=== PATIENT | female | born 1950 | race Caucasian/White ===

== ENCOUNTER → 2024-01-15 | Outpatient (CLI) | payer MEDICARE, OTHER, SELFPAY ==
--- NOTE | 2024-01-15 08:00 | XR_ITS ---
Examination: CT middle inner ear, without contrast. 2-D coronal reconstructions. 2-D sagittal reconstructions. 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 High-resolution 64 slice scanner utilized. 2-D coronal reconstructions 2-D sagittal reconstructions Low dose protocols were performed. One or more of the following dose reduction techniques were used; automated exposure control, adjustment of the mA and/or KV according to patient size, use of iterative reconstruction technique. Findings: Axial sections of the right demonstrate mildly reduced mastoid aeration. Mild fluid in the mastoid air cells Jugular fossa and carotid canal do not appear remarkable. No deformity of the ossicles. Porus acusticus internus does not exhibit erosion. Cochlear apparatus unremarkable. Semicircular canals normal. Right otitis externa, soft tissue density in the middle ear Coronal reconstructions demonstrate no erosion of the scutum. No soft tissue mass in the attic or Prussak's space is seen. Ossicular mass intact. Axial sections of the left demonstrate moderately reduced mastoid aeration. Mild fluid density in the mastoid air cells Jugular fossa and carotid canal do not appear remarkable. No deformity of the ossicles. Porus acusticus internus does not exhibit erosion. Cochlear apparatus unremarkable. Semicircular canals normal. Soft tissue density in the middle ear Otitis externa Coronal reconstructions demonstrate no erosion of the scutum. No soft tissue mass in the attic or Prussak's space is seen. Ossicular mass intact. Linear opacities at the semicircular canals bilaterally, coronal image 224 Mild mucosal thickening ethmoid air cells Prominent hypertrophy right middle right inferior nasal turbinate Mucosal thickening up to 5 mm in the inferior right maxillary antrum Impression: Fluid in both mastoid air cells Soft tissue density in the middle ears bilaterally Bilateral otitis externa Prominent hypertrophy right middle right inferior nasal turbinates
== END | disposition home or self-care (01) ==
PROVIDERS: Referring Provider Otolaryngology; Visit Provider Otolaryngology
DX: H60.93 Unspecified otitis externa, bilateral (principal); J34.3 Hypertrophy of nasal turbinates; H74.8X3 Other specified disorders of middle ear and mastoid, bilateral
CPT/HCPCS: 70480

== ENCOUNTER 2024-02-06 06:30 | Day surgery (SDC) | payer MEDICARE, OTHER, SELFPAY ==
[2024-02-04 13:50] LABS: Alanine Aminotransferase 61 U/L (10-49); Albumin, Serum 5.1 gm/dL (3.4-4.8); Albumin/Globulin Ratio 2.3 (1.2-2.2); Alkaline Phosphatase 216 U/L (46-116); Anion Gap 9 (7-16); Aspartate Amino Transferase 34 U/L (0-34); BUN/Creatinine Ratio 21 Ratio (12-20); Bilirubin,Total 0.5 mg/dL (0.3-1.2); Blood Urea Nitrogen 17 mg/dL (9-23); Calcium 10.2 mg/dL (8.3-10.6); Calcium (Corrected) 10.2 mg/dL (8.5-10.1); Carbon Dioxide 26.3 mMol/L (20.0-31.0); Chloride 106 mMol/L (98-107); Creatinine (Component) 0.8 mg/dL (0.6-1.3); Globulin 2.2 gm/dL (2.3-3.5); Glucose 115 mg/dL (74-106); Osmolality,Calculated 283 (275-295); Sodium 141 mMol/L (136-145); Total Protein 7.3 gm/dL (5.7-8.2); eGFR > 60 See Note
[2024-02-06] VITALS (13 sets, daily range): BP systolic 128–153; BP diastolic 73–84; PULSE 73–99; RESP 12–18; TEMP 36.2–36.4; O2SAT 94–98; BMI 30.9
[2024-02-06] MEDS: DEXAMETHASONE SOD PHOS INJ 10 MG/ML VIAL 8 MG IV (08:09)
--- NOTE | 2024-02-06 11:30 | SUR.PHASEI ---
pt received from OR in recovery bay 2. pt asleep but responds to voice, breathing unlabored on 6l oxymask. v/s stable. pt dressing to right ear cdi. report received from Dr. Lopez and Misbah LOJA.
--- NOTE | 2024-02-06 11:46 | SUR.PHASEI ---
Report from Edvin
--- NOTE | 2024-02-06 11:48 | ESOP_ITS ---
Date of Procedure 02/06/24 Pre Op Diagnosis Bilateral severe to profound mixed hearing loss Post Op Diagnosis Bilateral severe to profound mixed hearing loss Procedure Right tympanomastoidectomy with ossicular chain reconstruction using autologous cartilage graft. Facial nerve monitoring. And unsuccessful attempt at cochlear implant insertion Findings Patient had some sclerotic changes of the mastoid and mucosal thickening of the middle ear. A stainless steel stapes prosthesis was resting on the footplate held up by adhesions. The long process of the incus was eroded away. Facial nerve and chorda tympani nerve were in the normal position and the bony portion. The middle ear portion of the chorda tympani nerve was attached to the tympanic membrane. The round window niche was completely ossified and after extensive searching and drilling with the 1 mm cochleostomy bur and was unable to locate any membranous cochlea. Visualization was both through the mastoid and trans c anal after elevating a posterior tympanomeatal flap. The facial nerve was located in his normal position and confirmed with the nerve stimulator. The external canal on the right side had a large paraffin wax plug on top of the tympanic membrane that had what appeared to be the tympanic membrane. This was removed carefully prior to elevating the tympanomeatal flap. It was approximately 2 mm thick. Procedure Description Indications this is a 73-year-old female with severe to profound mixed hearing loss bilaterally. She has had bilateral stapedectomy's and has had decline in her hearing over the last several years. She has reached a point where she is getting minimal benefit from hearing aids especially on the right side. Treatment options were discussed and she wished to proceed with the implant procedure. She understood the risk including dizziness decreased sense of taste facial nerve paralysis and worsening of her hearing. Patient was marked and shaved in the preoperative setting then transferred to the operative suite where she was anesthetized intubated. The timeout was performed. The markings were made for the implant location as well as the incision. Patient was sterilely prepped and draped after placing the facial nerve monitoring electrodes in usual fashion for the right ear. Postauricular area was injected with 1% lidocaine with 1 100,000 Juventino epinephrine. Approximately 3 cc total were used. A lazy S incision was made postauricularly and then anterior and posterior flaps elevated with the knife and cautery. A palva flap was then created and the ear turned forward and held in place with self-retaining retractors. Pocket was created superiorly for the internal soccer player as well as anteriorly for the ground electrode. Canal wall up mastoidectomy was then initiated and a #6 cutting bur was used to carry the dissection down until the horizontal canal was identified. Further drilling was performed with a #4 cutting bur in reverse mode until the nerve was identified and confirmed with the nerve monitor. The aditus region was opened up as well. Chorda facial angle was opened up with a 1.5 mm jenn bur being careful not to injure the facial nerve and testing on occasion as the drilling was performed. Irrigation was used throughout the drilling procedure. Chorda tympani nerve was identified and preserved. The angle was then opened up and then middle ear visualized. Stapes prosthesis was visualized and appeared to be in the correct position. No round window niche was able to be visualized. Cochleostomy bur was used to lightly drill into the promontory at the suspected location of the round window. A posterior tympanomeatal flap was then created through the ear canal after removing self-retaining retractors. Flap was elevated the chorda tympani nerve was identified and preserved. The stapes prosthesis was visualized and the incus was found to be missing the long process. The malleus was in its usual position. The indentation of the promontory from the cochleostomy bur appeared to be in the correct location. It was approximately 2 mm inferior to the footplate of the stapes. Further drilling was carried out through the ear canal with the 1 mm bur irrigating as we continued. Dissection was carried a little more posteriorly and inferiorly and still was unable to find any type of fluid or membranous cochlea. There was soft tissue inferior to what would be considered the normal position this was probed in case it was over the round window and it resulted in a end with the probing. I went back into the mastoid cavity and inspected further drilled more and what looks to be considered the appropriate location to about a 2 mm depth and still no purulent 4 in the lymph or visualized. There were no signs of a membranous cochlea. This time I abandoned trying to insert the implant feeling that it would not provide her much benefit even if we did a drill-out procedure. Muscle plug that was harvested previously was placed over the area that was drilled out in case there was a small and the lymphatic leak. I went back through the ear canal. Harvested a 4 mm piece of tragal cartilage with the skin punch after elevating a skin flap. This was happened and then placed on top of the stapes prosthesis to allow to connect better to the tympanic membrane and malleus. Surgifoam dipped in saline was packed deep to that to help hold the cartilage in position. Tympanic membrane was turned back to its normal position and more Gelfoam was placed on top of that followed by double antibiotic ointment and then later a sterile cottonball once Dermabond and been placed over the incision site. Postauricular incision was closed in a multilayer fashion with 4-0 Vicryl and then Dermabond on the skin. Monitoring electrodes were removed and the patient was awakened and taken recovery room in stable condition it was hoped that we can improve her hearing some with the improvement of the conductive loss that was present. Anesthesia GETA Pathology / specimen None Estimated Blood Loss 5 Surgeon Salazar Gilmore DO Surgical Staff Operation Date: 02/06/24 08:30 Case Staff Anesthesiologist: Orlando Lopez
--- NOTE | 2024-02-06 12:20 | SUR.PHASEI ---
Report to Edvin LOJA
--- NOTE | 2024-02-06 14:35 | SUR.PHASEII ---
pt awake and alert, breathing unlabored on room air. v/s stable. pt dressing to right ear cdi. pt able to transfer to wheelchair. d/c instructions given with in room, all questions answered. pt d/c via wheelchair with all belongings.
== END 2024-02-06 14:35 | disposition home or self-care (01) ==
PROVIDERS: PCP Family Medicine; Referring Provider Otolaryngology; Visit Provider Otolaryngology
PROC: (CPT 69930; principal; 2024-02-06 08:30)
PROC: (CPT 69502; 2024-02-06 08:30)
DX: H90.6 Mixed conductive and sensorineural hearing loss, bilateral (principal)
CPT/HCPCS: 69636; 36415; 80053; A4217; A4649; J0131; J0744; J1100; J2371; J2704; J3010; J3473; J3490; J7040; Q9968; A9270; J1805

== ENCOUNTER → 2024-05-07 | Outpatient (CLI) | payer MEDICARE, OTHER, SELFPAY ==
--- NOTE | 2024-05-07 15:34 | XR_ITS ---
Examination: Transvaginal ultrasound of the pelvis, complete Technique: Transvaginal sonographic images pelvis performed using mena scale imaging Exam date and time: May 07, 2024 at 1852 hrs. Indications: Postmenopausal bleeding episode lasting 3 weeks December 2023 Findings: Uterus 9.2 cm endometrial stripe 3.0 cm Right ovary obscured by bowel gas Left ovary 2.3 cm arterial flow Impression: Abnormal thickened endometrial stripe 3.0 cm. Differential would include malignant neoplasm of the endometrium, recommend MRI pelvis follow-up pre and postcontrast
== END | disposition home or self-care (01) ==
PROVIDERS: PCP Nurse Practitioner Family; Referring Provider Nurse Practitioner Family; Visit Provider Nurse Practitioner Family
DX: R93.89 Abnormal findings on diagnostic imaging of other specified body structures (principal)
CPT/HCPCS: 76830

== ENCOUNTER → 2024-05-15 | Outpatient (CLI) | payer MEDICARE, OTHER, SELFPAY ==
--- NOTE | 2024-05-15 10:30 | XR_ITS ---
Examination: CT pelvis without intravenous contrast. CT pelvis with intravenous contrast 2-D sagittal and coronal reconstructions. Date and time of exam:May 15, 2024 1050 hours INDICATIONS: Lower pelvic pain beginning 3 weeks ago, transvaginal pelvic sonogram May 07, 2024 abnormally thickened endometrial stripe CTDI: vol (mGy) :28.54 DLP: (mGycm) : 768 Technique: Multiple 3 mm axial sections of the pelvis have been obtained with the 64 slice high resolution scanner. 2-D sagittal and coronal reconstructions. Low dose protocols were performed. One or more of the following dose reduction techniques were used; automated exposure control, adjustment of the mA and/or KV according to patient size, use of iterative reconstruction technique. Findings: Negative for bowel obstruction or diverticulitis Anteverted uterus Markedly abnormal endometrium, thickened up to 26 mm No adnexal mass Contracted urinary bladder Prominent osteopenia IMPRESSION: Markedly abnormal endometrium, thickened up to 26 mm, differential would include malignant neoplasm of the endometrium Recommend MRI pelvis follow-up pre and postcontrast
== END | disposition home or self-care (01) ==
LOC: CCTX 10:23
PROVIDERS: PCP Nurse Practitioner Family; Referring Provider Nurse Practitioner Family; Visit Provider Nurse Practitioner Family
DX: R93.89 Abnormal findings on diagnostic imaging of other specified body structures (principal)
CPT/HCPCS: 72194; A4649; Q9967

== ENCOUNTER → 2024-05-26 | Outpatient (CLI) | payer MEDICARE, OTHER, SELFPAY ==
--- NOTE | 2024-05-26 08:30 | XR_ITS ---
Examination: CT middle inner ear, without contrast. 2-D coronal reconstructions. 2-D sagittal reconstructions. Date and time of exam: May 26, 2024 at 0829 hours INDICATIONS: Bilateral hearing loss, unsuccessful cochlear implant January 2024 CTDI: vol (mGy): 15.6 DLP: (mGycm):218 Technique: Multiple 1.0 mm axial sections of the middle inner ears bilaterally. High-resolution 64 slice scanner utilized. 2-D coronal reconstructions 2-D sagittal reconstructions Low dose protocols were performed. One or more of the following dose reduction techniques were used; automated exposure control, adjustment of the mA and/or KV according to patient size, use of iterative reconstruction technique. Findings: Axial sections of the right demonstrate significantly reduced mastoid aeration. Fluid in the right mastoid air cells Surgical defect right mastoid air cells Jugular fossa and carotid canal do not appear remarkable. No deformity of the ossicles. Porus acusticus internus does not exhibit erosion. Cochlear apparatus unremarkable. Semicircular canals normal. External auditory canal open. Coronal reconstructions demonstrate no erosion of the scutum. No soft tissue mass in the attic or Prussak's space is seen. Ossicular mass intact. Axial sections of the left demonstrate significantly reduced mastoid aeration. Jugular fossa and carotid canal do not appear remarkable. No deformity of the ossicles. Porus acusticus internus does not exhibit erosion. Cochlear apparatus unremarkable. Semicircular canals normal. External auditory canal open Coronal reconstructions demonstrate no erosion of the scutum. No soft tissue mass in the attic or Prussak's space is seen. Ossicular mass intact. Roof of the mastoid air cells appear intact bilaterally. Small linear opacities tips at the level of the semicircular canals bilaterally, not in the cochlear apparatus Impression: Advanced chronic bilateral mastoiditis Acute right mastoiditis Large surgical defect right mastoid air cells Bilateral otitis media Mild bilateral otitis externa
== END | disposition home or self-care (01) ==
LOC: CCTX 08:12
PROVIDERS: Referring Provider Otolaryngology; Visit Provider Otolaryngology
DX: H70.93 Unspecified mastoiditis, bilateral (principal); H70.001 Acute mastoiditis without complications, right ear; H66.93 Otitis media, unspecified, bilateral; H60.8X3 Other otitis externa, bilateral
CPT/HCPCS: 70480

== ENCOUNTER 2024-07-14 06:25 | Day surgery (SDC) | payer MEDICARE, OTHER, SELFPAY ==
--- NOTE | 2024-07-10 18:01 | ESHP_ITS ---
RE: KENDALL BERNARD : 1950 DATE OF ADMISSION: 07/14/2024 HISTORY OF PRESENT ILLNESS: This is a 73-year-old 7, para 3-0-4-3 with abnormal endometrial thickening and postmenopausal bleeding who presents for endometrial biopsies to rule out hyperplasia and carcinoma. The patient was medically cleared by her health information specialist, Dr. Gallardo. ALLERGIES: PATIENT IS ALLERGIC TO AMOXICILLIN, DIFLUCAN, CLINDAMYCIN, AND HYDROCODONE. MEDICATIONS: 1. Lisinopril 10 mg one p.o. daily. 2. Atorvastatin 40 mg one p.o. daily. 3. Meloxicam 7.5 mg one p.o. b.i.d. p.r.n. pain. PAST MEDICAL HISTORY: Hypertension, high cholesterol, and osteoarthritis. PAST SURGICAL HISTORY: Tonsillectomy. SOCIAL HISTORY: She denies any alcohol, drug use, or smoking. 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 PHYSICAL EXAMINATION: VITAL SIGNS: Blood pressure is 142/78, heart rate 88, respirations 18, temperature 98.6. HEENT: Oropharynx and sclerae are clear. LUNGS: Clear to auscultation bilaterally. HEART: Regular rate and rhythm. ABDOMEN: Nontender. EXTREMITIES: Nontender. SKIN: No gross rashes or lesions. NEUROLOGIC: No focal deficit. ASSESSMENT: Postmenopausal bleeding and endometrial thickening. PLAN: Hysteroscopy, MyoSure removal of endometrial polyps, fractional dilatation and curettage. Informed consent was obtained. The patient was made aware of the risks, complications, alternatives, and benefits of the proposed procedure and she agrees. DT: 16:45:07 TT: 18:00:00 Ref: [id number] - TID: [id number] MTDD
--- NOTE | 2024-07-13 06:35 | EKG_ITS ---
[facility] Test Date: 2024-07-13 Pat Name: KENDLAL BERNARD Department: Room: - Gender: Female Sleeve Sewer: KIMANI : 1950 Requested By: Orlando Lopez Order Number: [id number] Reading MD: Orlando Lopez Measurements Intervals [place] Rate: 67 P: 71 NM: 196 QRS: -9 QRSD: 97 T: 40 QT: 376 QTc: 397 Interpretive Statements SINUS RHYTHM Compared to ECG 09/19/2017 11:31:01 Left-axis deviation no longer present /store/S0/[id number]/ecg/[id number].pdf
[2024-07-13 08:06] VITALS: BMI 31.4
[2024-07-13 08:56] LABS: Basophils # (Auto) 0.1 Thou/mm3 (0.0-0.2); Basophils % (Auto) 1 % (0-2.5); Eosinophils # (Auto) 0.6 Thou/mm3 (0.0-0.5); Eosinophils % (Auto) 7 % (0-10); Hematocrit 40.6 % (36.0-46.0); Hemoglobin 14.1 g/dL (12.0-16.0); Immature Granulocytes % (Auto) 1 % (0-0); Immature Granulocytes Auto 0.04 Thou/mm3 (0.00-0.00); Lymphocytes # (Auto) 2.1 Thou/mm3 (1.0-4.8); Lymphocytes % (Auto) 24 % (10-50); Mean Corpuscular HGB Conc 34.7 g/dl (31.0-37.0); Mean Corpuscular Hemoglobin 30.2 pg (25.0-35.0); Mean Corpuscular Volume 87 fL (80-100); Monocytes # (Auto) 0.8 Thou/mm3 (0.0-0.8); Monocytes % (Auto) 9 % (0-12); Neutrophils # (Auto) 5.1 Thou/mm3 (1.8-7.7); Neutrophils % (Auto) 59 % (37-80); Nucleated Red Blood Cell % 0 /100 WBC (0); Platelet Count 302 Thou/mm3 (140-440); RDW Standard Deviation 41.1 fL (36.4-46.3); Red Blood Count 4.67 Miln/mm3 (4.00-5.20); White Blood Count 8.6 Thou/mm3 (3.6-11.0)
[2024-07-13 09:14] LABS: INR 0.9 (0.9-1.3); Partial Thromboplastin Time 27.3 Seconds (22.0-36.0); Prothrombin Time 10.4 Seconds (9.0-12.2)
[2024-07-13 09:17] LABS: Alanine Aminotransferase 52 U/L (10-49); Albumin, Serum 4.4 gm/dL (3.4-4.8); Albumin/Globulin Ratio 1.8 (1.2-2.2); Alkaline Phosphatase 173 U/L (46-116); Anion Gap 11 (7-16); Aspartate Amino Transferase 34 U/L (0-34); BUN/Creatinine Ratio 25 Ratio (12-20); Bilirubin,Total 0.7 mg/dL (0.3-1.2); Blood Urea Nitrogen 20 mg/dL (9-23); Calcium 9.4 mg/dL (8.3-10.6); Calcium (Corrected) 9.4 mg/dL (8.5-10.1); Carbon Dioxide 25.1 mMol/L (20.0-31.0); Chloride 108 mMol/L (98-107); Creatinine (Component) 0.8 mg/dL (0.6-1.3); Estimated Creatinine Clearance 62.9 mL/min (>60); Globulin 2.4 gm/dL (2.3-3.5); Glucose 107 mg/dL (74-106); Osmolality,Calculated 289 (275-295); Potassium 3.9 mMol/L (3.4-5.1); Sodium 144 mMol/L (136-145); Total Protein 6.8 gm/dL (5.7-8.2); eGFR > 60 See Note
--- NOTE | 2024-07-13 14:11 | SUR.PREOP ---
Cardiac records reviewed with Dr Lopez.
[2024-07-14] VITALS (8 sets, daily range): BP systolic 114–129; BP diastolic 65–86; PULSE 58–74; RESP 12–20; TEMP 36.5–36.6; O2SAT 95–99; BMI 31.1
--- NOTE | 2024-07-14 09:53 | SUR.PHASEI ---
pt received from OR in recovery bay 6. pt asleep but responds to voice, breathing unlabored on oxymask 6l. v/s stable. pt dressing peripad cdi. report received from Katlin LOJA and Bernardino RAMOS.
--- NOTE | 2024-07-14 11:21 | SUR.PHASEII ---
pt awake and alert, breathing unlabored on room air. v/s stable. pt dressing peripad cdi. pt able to ambulate to wheelchair with steady gait. d/c instructions given with R[place], all questions answered. pt d/c via wheelchair with all belongings.
--- NOTE | 2024-07-21 22:50 | ESOP_ITS ---
RE: KENDALL BERNARD : 1950 DATE OF OPERATION: 07/14/224 PREOPERATIVE DIAGNOSES: 1. Endometrial thickening. 2. Postmenopausal bleeding. POSTOPERATIVE DIAGNOSES: 1. Endometrial thickening. 2. Postmenopausal bleeding. 3. Endometrial polyp. PROCEDURE PERFORMED: Hysteroscopy, Myosure removal of endometrial polyp and fractional dilatation and curettage. SURGEON: Star Smith DO POST PRODUCTION ASSISTANT: None. ANESTHESIA: General. ANESTHESIOLOGIST: Bernardino Guillory CRNA ESTIMATED BLOOD LOSS: 5 mL. COMPLICATIONS: None. COUNTS: Correct. PATHOLOGY: 1. Endometrial polyp. 2. Endocervical curettings. FINDINGS: A 3 x 2 cm endometrial polyp. DESCRIPTION OF PROCEDURE: After appropriate informed consent was obtained and the patient made aware of the risks, complications, alternatives, benefits of the proposed procedure, she was taken to the operating room where she underwent induction of general anesthesia. She was placed in the dorsal lithotomy position. She was prepped and draped in the usual sterile fashion. A timeout was performed. A Bi-valve speculum was placed in the vagina. A single-tooth tenaculum was used to grasp the anterior lip of the cervix. The cervix was dilated to accommodate the 6 mm Omni hysteroscope. The hysteroscope was then utilized to visualize the endocervix and uterine cavity. Using the MyoSure XL, the polypectomy was performed and specimen sent to pathology. The endocervix was then curetted and specimen sent to pathology. The uterine cavity was curetted and specimen sent to pathology. There was no bleeding at the end of the procedure. All instruments were removed from the vagina. She was reversed from general anesthesia in the supine position and transferred to the recovery room in stable condition. She tolerated the procedure well. Counts were correct. I discussed with the patient the nature of her condition, the intraoperative findings, expectation for recovery. All questions answered. DT: 19:31:35 TT: 22:49:00 Ref: [id number] - TID: [id number] [facility]
== END 2024-07-14 11:21 | disposition home or self-care (01) ==
PROVIDERS: PCP Family Medicine; Referring Provider Specialist; Visit Provider Specialist
PROC: 0U5B8ZZ Destruction of Endometrium, Via Natural or Artificial Opening Endoscopic (ICD-10-PCS; CPT 58563; principal; 2024-07-14 08:30)
DX: N84.0 Polyp of corpus uteri (principal); M19.90 Unspecified osteoarthritis, unspecified site; Z79.1 Long term (current) use of non-steroidal anti-inflammatories (NSAID); Z79.899 Other long term (current) drug therapy; Z90.89 Acquired absence of other organs; I10 Essential (primary) hypertension; Z01.810 Encounter for preprocedural cardiovascular examination
CPT/HCPCS: 58558; 36415; 80053; 85025; 85610; 85730; 86850; 86900; 86901; 93005; A4217; A4649; J0131; J2250; J2704; J3010; J3490